=== PATIENT | female | born 1975 | race African-American/Black ===

== ENCOUNTER 2020-06-09 07:53 | Inpatient (IN) | payer OTHER ==
[2020-06-09] MEDS ORDERED: Ketorolac Tromethamine 30 MG/ML VIAL ONE (08:12)
[2020-06-09] MEDS ORDERED: Acetaminophen 500 MG TAB ONE (08:12)
[2020-06-09 08:30] LABS: ALT (SGPT) 20 U/L (8-55); AST (SGOT) 32 U/L (5-34); Albumin 3.8 g/dL (3.5-5.0); Alkaline Phosphatase 117 U/L (40-110); Anion Gap 14 mmol/L (10-20); BUN (Urea Nitrogen) 7 mg/dL (7.0-18.7); Bilirubin, Total 0.3 mg/dL (0.2-1.2); Calc. Creatinine Clearance 0 mL/min (70-130); Carbon Dioxide 20 mmol/L (22-29); Chloride 108 mmol/L (98-107); Globulin 4.4 g/dL (2.4-3.5); Glucose 76 mg/dL (70-105); Potassium 4.5 mmol/L (3.5-5.1); Protein, Total 8.2 g/dL (6.0-8.3); Sodium 137 mmol/L (136-145)
[2020-06-09 08:37] LABS: #Neutrophils 5.5 10x3/uL (1.5-8.4); %Basophils 0.3 % (0.0-2.0); %Eosinophils 0.5 % (0.0-6.0); %Lymphocytes 10.4 % (18.0-47.0); %Monocytes 0.5 % (0.0-10.0); %Neutrophils 88.1 % (40.0-75.0); Hemoglobin 10.8 g/dL (12.0-15.5); Mean Corpuscular HGB CONC 30.9 g/dL (32.0-36.0); Mean Corpuscular Hemoglobin 27.4 pg (27.0-33.0); Mean Corpuscular Volume 88.6 fl (81.6-98.3); Mean Platelet Volume 9.1 fl (7.4-10.4); Platelet Count 261 10x3/uL (150-450); RBC Distribution Width 14.5 % (11.5-14.5); Red Blood Cell (RBC) Count 3.94 10x6/uL (3.90-5.03); White Blood Cell (WBC) Count 6.2 10x3/uL (3.5-10.5)
[2020-06-09] MEDS ORDERED: Piperacillin/Tazobactam 4.5 GM VIAL ONE (09:16)
[2020-06-09 09:38] LABS: Bilirubin Neg (Negative); Blood, Urine 150 (Negative); Clarity Clear (Clear); Glucose, Urine (Dipstick) Normal (Negative); Ketone, Urine Negative (Negative); Leukocyte Negative (Negative); Nitrite Negative (Negative); Protein, Urine (Dipstick) 15 mg/dl (Neg-Trace); Urobilinogen Normal mg/dL (Less than 2); pH, Urine 6.5 (5.0-9.0)
[2020-06-09 10:07] LABS: Bacteria/HPF 2+ HPF (None Seen); RBC/HPF 0-3 HPF (0-3); Squamous Epithelial 0-3 HPF (0-3); WBC/HPF 0-3 HPF (0-3)
[2020-06-09 10:59] LABS: SARS-CoV-2 NAA Rapid Test Not Detected (NotDetected)
[2020-06-09] MEDS ORDERED: Morphine 4 MG/ML VIAL ONE (11:04)
[2020-06-09] MEDS ORDERED: Ondansetron PF 4 MG/2 ML Vial ONE (11:05)
[2020-06-09] MEDS ORDERED: cefOXitin Sodium/Dextrose,Iso 2 GM in Premix Bag 1 BAG IVPB ONE (11:30)
[2020-06-09] MEDS ORDERED: Morphine 2 MG/ML VIAL ONE (12:36)
[2020-06-09] MEDS ORDERED: diphenhydrAMINE 50 MG/ML VIAL ONE (12:46)
[2020-06-09] MEDS ORDERED: Ibuprofen 800 MG TAB PO PRN (12:47)
[2020-06-09] MEDS ORDERED: diphenhydrAMINE 50 MG/ML VIAL IVP SCH ×2 (13:00)
[2020-06-09] MEDS ORDERED: Sodium Chloride 0.9% 1,000 ML IV SCH (13:00)
[2020-06-09] MEDS ORDERED: diphenhydrAMINE 50 MG/ML VIAL IVP PRN (13:34)
[2020-06-09] MEDS: Morphine 4 MG/ML VIAL SLOW IVP PRN ×3 (16:47→21:36)
[2020-06-09] MEDS ORDERED: Acetaminophen 500 MG TAB PO PRN (18:04)
[2020-06-09] MEDS: cefOXitin Sodium/Dextrose,Iso 2 GM in Premix Bag 1 BAG IVPB SCH (18:21)
[2020-06-09] MEDS: traMADol HCl 50 MG TAB PO PRN (18:23)
[2020-06-09] MEDS: Ibuprofen 600 MG TAB PO SCH (18:49)
[2020-06-09] MEDS: Doxycycline 100 MG CAP PO SCH (21:38)
[2020-06-10] MEDS: cefOXitin Sodium/Dextrose,Iso 2 GM in Premix Bag 1 BAG IVPB SCH ×4 (00:50→18:10)
[2020-06-10] MEDS: Ibuprofen 600 MG TAB PO SCH ×4 (00:51→18:09)
[2020-06-10] MEDS: traMADol HCl 50 MG TAB PO PRN ×4 (00:52→18:08)
[2020-06-10] MEDS: Doxycycline 100 MG CAP PO SCH ×2 (10:47→20:25)
[2020-06-10] MEDS: Lactated Ringer's 1,000 ML IV SCH ×2 (15:06→18:11)
[2020-06-11] MEDS: Ibuprofen 600 MG TAB PO SCH ×3 (00:01→11:45)
[2020-06-11] MEDS: traMADol HCl 50 MG TAB PO PRN ×3 (00:02→18:34)
[2020-06-11] MEDS: cefOXitin Sodium/Dextrose,Iso 2 GM in Premix Bag 1 BAG IVPB SCH ×4 (00:02→17:49)
[2020-06-11] MEDS: metroNIDAZOLE 500 MG TAB PO SCH ×2 (08:47→22:00)
[2020-06-11] MEDS: Doxycycline 100 MG CAP PO SCH ×2 (08:47→22:00)
[2020-06-11] MEDS: Morphine 4 MG/ML VIAL SLOW IVP PRN (11:47)
[2020-06-11] MEDS: Lactated Ringer's 1,000 ML IV SCH (15:40)
[2020-06-12] MEDS: cefOXitin Sodium/Dextrose,Iso 2 GM in Premix Bag 1 BAG IVPB SCH ×2 (00:38→06:53)
[2020-06-12] MEDS: Lactated Ringer's 1,000 ML IV SCH (00:46)
[2020-06-12] MEDS: Cephalexin 500 MG CAP PO SCH ×2 (09:13→21:05)
[2020-06-12] MEDS: Doxycycline 100 MG CAP PO SCH ×2 (09:13→20:59)
[2020-06-12] MEDS: traMADol HCl 50 MG TAB PO PRN ×3 (09:14→20:59)
[2020-06-12] MEDS: metroNIDAZOLE 500 MG TAB PO SCH ×2 (09:14→20:59)
[2020-06-12 14:13] LABS: LOG10 HIV-1 RNA 4.17 (.)
[2020-06-12 15:13] LABS: %CD4 (Helper/Inducer) 20.5 % (30.8-58.5); Absolute CD4 62 /uL (359-1519); Lymphocytes/Gated Cell Count 0.3 x10E3/uL (0.7-3.1); Total Lymphocyte 2 % (Not Estab.); WBC Total Count 13.6 x10E3/uL (3.4-10.8)
[2020-06-12] MEDS ORDERED: Cephalexin 250 MG CAP ONE (21:03)
[2020-06-13] MEDS: traMADol HCl 50 MG TAB PO PRN ×2 (01:27→15:57)
[2020-06-13] MEDS: Doxycycline 100 MG CAP PO SCH ×2 (08:12→21:30)
[2020-06-13] MEDS: Cephalexin 500 MG CAP PO SCH (08:12)
[2020-06-13] MEDS: metroNIDAZOLE 500 MG TAB PO SCH (08:12)
[2020-06-13] MEDS ORDERED: Lidocaine 1% PF 5 ML VIAL ONE (10:16)
[2020-06-13] MEDS ORDERED: Sodium Bicarbonate 2.5 MEQ/5 ML VIAL ONE (10:16)
[2020-06-13] MEDS ORDERED: Ondansetron ODT 8 MG TAB PO PRN (11:53)
[2020-06-13] MEDS ORDERED: Ondansetron ODT 4 MG TAB ONE ×2 (12:05→12:06)
[2020-06-13] MEDS: MEROPENEM 1 GM/50 ML 1 GM in Premix Bag 1 BAG IVPB SCH (15:52)
[2020-06-14] MEDS: MEROPENEM 1 GM/50 ML 1 GM in Premix Bag 1 BAG IVPB SCH ×4 (00:21→18:25)
[2020-06-14] MEDS: traMADol HCl 50 MG TAB PO PRN ×3 (02:03→21:49)
[2020-06-14] MEDS ORDERED: Ondansetron ODT 4 MG TAB PO PRN (07:45)
[2020-06-14] MEDS ORDERED: Sulfameth/Trimethoprim DS 800-160mg TAB PO SCH (09:00)
[2020-06-14] MEDS: NIFEdipine XL 30 MG TAB PO SCH (09:26)
[2020-06-14] MEDS: Doxycycline 100 MG CAP PO SCH ×2 (09:26→21:49)
[2020-06-14] MEDS ORDERED: Activase 2 MG VIAL CATH SCH (10:30)
[2020-06-15] MEDS: MEROPENEM 1 GM/50 ML 1 GM in Premix Bag 1 BAG IVPB SCH ×3 (02:05→17:23)
[2020-06-15 07:48] LABS: Anion Gap 17 mmol/L (10-20); BUN (Urea Nitrogen) Less than 4 mg/dL (7.0-18.7); Calc. Creatinine Clearance 124 mL/min (70-130); Calcium 10.5 mg/dL (7.8-10.44); Carbon Dioxide 21 mmol/L (22-29); Chloride 101 mmol/L (98-107); Glucose 70 mg/dL (70-105); Potassium 3.9 mmol/L (3.5-5.1); Sodium 135 mmol/L (136-145)
[2020-06-15 07:52] LABS: #Basophils 0.1 10x3/uL (0.0-0.2); #Eosinphils 0.1 10x3/uL (0.0-0.5); #Monocytes 0.8 10x3/uL (0.0-1.1); #Neutrophils 6.4 10x3/uL (1.5-8.4); %Basophils 0.6 % (0.0-2.0); %Eosinophils 1.4 % (0.0-6.0); %Lymphocytes 18.7 % (18.0-47.0); %Monocytes 7.9 % (0.0-10.0); %Neutrophils 67.4 % (40.0-75.0); Hemoglobin 9.8 g/dL (12.0-15.5); Mean Corpuscular HGB CONC 32.9 g/dL (32.0-36.0); Mean Corpuscular Hemoglobin 27.3 pg (27.0-33.0); Platelet Count 337 10x3/uL (150-450); RBC Distribution Width 14.6 % (11.5-14.5); Red Blood Cell (RBC) Count 3.59 10x6/uL (3.90-5.03); White Blood Cell (WBC) Count 9.5 10x3/uL (3.5-10.5)
[2020-06-15] MEDS ORDERED: BIKTARVY PO SCH (08:00)
[2020-06-15] MEDS: NIFEdipine XL 30 MG TAB PO SCH (08:52)
[2020-06-15] MEDS: Doxycycline 100 MG CAP PO SCH (08:52)
[2020-06-15] MEDS: traMADol HCl 50 MG TAB PO PRN (08:56)
[2020-06-15 17:42] VITALS: BP 125/83; TEMP 98.1
== END 2020-06-15 19:55 | disposition short-term general hospital (02) | DRG 758 ==
LOC: CSHERS 07:53 → CSHPP 11:39 → CSHPED 12:21
PROVIDERS: ADMIT Obstetrics & Gynecology; ATTEND Obstetrics & Gynecology
PROC: 02HV33Z Insertion of Infusion Device into Superior Vena Cava, Percutaneous Approach (ICD-10-PCS; principal; 2020-06-13)
PROC: B5181ZA Fluoroscopy of Superior Vena Cava using Low Osmolar Contrast, Guidance (ICD-10-PCS; 2020-06-13)
DX: N70.03 Acute salpingitis and oophoritis (principal); B20 Human immunodeficiency virus [HIV] disease; N39.0 Urinary tract infection, site not specified; N73.9 Female pelvic inflammatory disease, unspecified; Z20.822 Contact with and (suspected) exposure to COVID-19; F17.210 Nicotine dependence, cigarettes, uncomplicated
CPT/HCPCS: 0240U; 36415; 36569; 71045; 74177; 76856; 80048; 80053; 81003; 81015; 83605; 85025; 85048; 86140; 86361; 87040; 87077; 87086; 87186; 87536; 87591; 93005; 93010; 96365; 96375; C1751; J0694; J1200; J1885; J2185; J2270; J2405; J2543; J3490; Q0162

== ENCOUNTER 2021-12-09 07:35 | Emergency (ER) | payer OTHER ==
[2021-12-09] MEDS ORDERED: Aspirin Chewable 81 MG TAB ONE (08:05)
[2021-12-09 08:26] LABS: #Basophils 0.1 10x3/uL (0.0-0.2); #Eosinphils 0.1 10x3/uL (0.0-0.5); #Monocytes 0.5 10x3/uL (0.0-1.1); #Neutrophils 3.1 10x3/uL (1.5-8.4); %Eosinophils 2.8 % (0.0-6.0); %Monocytes 10.1 % (0.0-10.0); %Neutrophils 61.7 % (40.0-75.0); Hemoglobin 11.9 g/dL (12.0-15.5); Mean Corpuscular Hemoglobin 29.1 pg (27.0-33.0); Mean Corpuscular Volume 85.6 fl (81.6-98.3); Mean Platelet Volume 9.2 fl (7.4-10.4); Platelet Count 386 10x3/uL (150-450); RBC Distribution Width 14.4 % (11.5-14.5); Red Blood Cell (RBC) Count 4.09 10x6/uL (3.90-5.03)
[2021-12-09 08:43] LABS: ALT (SGPT) 12 U/L (8-55); AST (SGOT) 22 U/L (5-34); Albumin 4.5 g/dL (3.5-5.0); Alkaline Phosphatase 90 U/L (40-110); Anion Gap 14 mmol/L (10-20); BUN (Urea Nitrogen) 7 mg/dL (7.0-18.7); Bilirubin, Total 0.6 mg/dL (0.2-1.2); Calc. Creatinine Clearance 0 mL/min (70-130); Calcium 10.7 mg/dL (7.8-10.44); Carbon Dioxide 20 mmol/L (22-29); Chloride 107 mmol/L (98-107); Estimated GFR 102; Globulin 3.8 g/dL (2.4-3.5); Glucose 93 mg/dL (70-105); Lipase 15 U/L (8-78); Potassium 4.1 mmol/L (3.5-5.1); Protein, Total 8.3 g/dL (6.0-8.3); Sodium 137 mmol/L (136-145)
== END 2021-12-09 10:10 | disposition home or self-care (01) ==
LOC: CSHERS 07:35
DX: R07.89 Other chest pain (principal); Z87.891 Personal history of nicotine dependence
CPT/HCPCS: 71045; 80053; 83690; 83880; 84484; 85025; 93005; 94760

== ENCOUNTER 2022-09-19 11:06 | Emergency (ER) | payer OTHER, SELFPAY ==
[2022-09-19 12:11] LABS: Bilirubin Neg (Negative); Blood, Urine 10 (Negative); Clarity Clear (Clear); Glucose, Urine (Dipstick) Normal (Negative); Ketone, Urine Negative (Negative); Leukocyte 500 (Negative); Nitrite Negative (Negative); Protein, Urine (Dipstick) 15 mg/dl (Neg-Trace); Urobilinogen Normal mg/dL (Less than 2)
[2022-09-19 12:18] LABS: CAUTI Indications for Culture Dysuria,urgency,freq; RBC/HPF 0-3 HPF (0-3)
[2022-09-19 12:19] LABS: Bacteria/HPF 1+ HPF (None Seen)
[2022-09-19 12:20] LABS: Urine Culture Reflex Yes Yes
[2022-09-19 12:49] LABS: SARS-CoV-2 NAA Rapid Test Not Detected (NotDetected)
[2022-09-19] MEDS ORDERED: cefTRIAXone (ROCEPHIN) 500 MG VIAL ONE (13:59)
[2022-09-19] MEDS ORDERED: Lidocaine 1% PF 5 ML VIAL ONE (13:59)
[2022-09-20 03:40] LABS: Chlam.trachomatis by PCR,Urine Not Detected (NotDetected); GC N.gonorrhoeae PCR,UrineVOID Not Detected (NotDetected)
== END 2022-09-19 14:11 | disposition home or self-care (01) ==
LOC: CSHERS 11:06
DX: R30.0 Dysuria (principal); N76.0 Acute vaginitis; A59.9 Trichomoniasis, unspecified; Z87.891 Personal history of nicotine dependence
CPT/HCPCS: 71045; 81001; 87086; 87480; 87491; 87510; 87591; 87660; 96372; J0696

== ENCOUNTER 2023-03-29 18:42 | Emergency (ER) | payer MEDICAID | END 2023-03-29 19:10 | disposition home or self-care (01) | LOC: CSHERS 18:42 | DX: L73.9 Follicular disorder, unspecified (principal); B20 Human immunodeficiency virus [HIV] disease; Z55.6 Problems related to health literacy; Z87.891 Personal history of nicotine dependence | CPT/HCPCS: 99283 ==